=== PATIENT | male | born 2000 | race African-American/Black ===

== ENCOUNTER 2018-04-20 08:28 | Emergency (ER) | payer OTHER, SELFPAY ==
[2018-04-20 08:29] VITALS: BP 140/84; PULSE 102; RESP 16; TEMP 36.8; O2SAT 98; BMI 25.8
--- NOTE | 2018-04-20 08:34 | RAD_ITS ---
STUDY: X-RAY - RIGHT HAND, ATTENTION THUMB FINGER REASON FOR EXAM: Male, 18 years old. Right thumb injury 10 days ago. Swelling. TECHNIQUE: 3 view(s) of the finger were obtained. COMPARISON: None. FINDINGS: Normal metacarpal head. Normal metacarpophalangeal joint. Normal proximal phalanx. Normal middle phalanx. The tip of the distal phalanx of the thumb is somewhat ill-defined. There is adjacent soft tissue swelling. Normal proximal interphalangeal joint. Normal distal interphalangeal joint. There is otherwise no demonstrated fracture. RAD/Finger(s) Min 2 Views IMPRESSION: The tip of the distal phalanx of the thumb is somewhat ill-defined. Early resorption or infectious process is difficult to entirely exclude. Follow-up exam is recommended if clinically indicated. Electronically Signed: Nikko Castro MD at 9:06 EDT Tel , Service support ,
--- NOTE | 2018-04-20 08:43 | ED.VISSUMM ---
- ER Visit Summary Date of Service: 04/20/18 Chief Complaint: Pain, swelling, redness and blood under nail secondary to blunt trauma that occurred at work History of Present Illness: The patient is a 18 M who is right hand dominant presents with traumatic injury right thumb that occurred approximate 1 week ago at work. He reports increased pain and swelling. He does have a subungual hematoma. He states blood did spontaneously evacuate. He presents now because of throbbing pain right thumb with swelling and redness. He denies fever, chills or night sweats. He denies history rheumatic fever, murmur, SBE, IV drug use or being immune suppressed. He reports pain with movement of the thumb. He has no antibiotic allergies. Please read written note for complete detail Physical Examination: Vital signs remarkable for an elevated blood pressure 140/84 heart rate 102. Heart is regular without murmur, gallop or rub. S1 and S2 are normal. Lungs are clear to auscultation with good movement of air bilaterally. The right thumb is swollen erythematous. The erythema is distal DIP joint. There is a lymphangitic streak to the MCP joint. There is fluctuance on the dorsal surface and significant fluctuance on the volar surface, which raises concern for a felon. There is no epitrochlear or axillary lymphadenopathy. Test Results: Three-view x-ray of the right thumb was obtained interpreted by me. There is no fracture, foreign body or subcutaneous air. There is soft tissue swelling noted. Emergency Department Course and Treatment: Three-view x-ray of thumb was obtained to evaluate for foreign body, fracture and subcu air. Patient was informed that the thumb (he fell and) needs to be drained. He was informed what that entailed. A metacarpal nerve block was placed prior to patient going to x-ray. Incision was made at area of maximal fluctuance. Significant purulent material drained. Blunt dissection was undertaken. During blunt dissection. Material flowed from under the nail. In light of this the distal radial portion was removed. There is a 2 mm defect noted. The incision was irrigated and a wick was placed. Treatment Plan: Antibiotics and follow-up with corporate care on Sunday for wound check. Since this is a felon he should follow-up with orthopedics, Dr. Huizar. Disposition: Discharged home in stable and improved condition with prescription for clindamycin and outpatient orthopedic follow-up in 2 days. Impression: 1. Felon right thumb with lymphangitis initial encounter 2. I&D felon right thumb 3. Partial nail removal right thumb This note was generated with [employer] dictation software. It may contain incorrect words, spelling, and punctuation that were not noted in review of the chart prior to signing ED Disposition - Plan for ED Patient: Disposition: Home or Assisted Living Chief Complaint: Upper Extremity Injury Instructions: ED Abscess IandD Prescriptions: Clindamycin HCl 300 mg PO 4X/DAY #28 cap Referrals: Care Physician,No Primary [Primary Care Provider] - Avani Huizar DO [STAFF PHYSICIAN] - 2 Days for wound check Additional Instructions: If you develop a temperature greater than 100 or have shaking chills or red streak advances to your wrist return to the emergency department.
--- NOTE | 2018-04-20 08:47 | ED.DCSUM_ITS ---
- ER Visit Summary Date of Service: 04/20/18 Chief Complaint: Pain, swelling, redness and blood under nail secondary to blunt trauma that occurred at work History of Present Illness: The patient is a 18 M who is right hand dominant presents with traumatic injury right thumb that occurred approximate 1 week ago at work. He reports increased pain and swelling. He does have a subungual hematoma. He states blood did spontaneously evacuate. He presents now because of throbbing pain right thumb with swelling and redness. He denies fever, chills or night sweats. He denies history rheumatic fever, murmur, SBE, IV drug use or being immune suppressed. He reports pain with movement of the thumb. He has no antibiotic allergies. Please read written note for complete detail Physical Examination: Vital signs remarkable for an elevated blood pressure 140/ 84 heart rate 102. Heart is regular without murmur, gallop or rub. S1 and S2 are normal. Lungs are clear to auscultation with good movement of air bilaterally. The right thumb is swollen erythematous. The erythema is distal DIP joint. There is a lymphangitic streak to the MCP joint. There is fluctuance on the dorsal surface and significant fluctuance on the volar surface , which raises concern for a felon. There is no epitrochlear or axillary lymphadenopathy. Test Results: Three-view x-ray of the right thumb was obtained interpreted by me. There is no fracture, foreign body or subcutaneous air. There is soft tissue swelling noted. Emergency Department Course and Treatment: Three-view x-ray of thumb was obtained to evaluate for foreign body, fracture and subcu air. Patient was informed that the thumb (he fell and) needs to be drained. He was informed what that entailed. A metacarpal nerve block was placed prior to patient going to x-ray. Incision was made at area of maximal fluctuance. Significant purulent material drained. Blunt dissection was undertaken. During blunt dissection. Material flowed from under the nail. In light of this the distal radial portion was removed. There is a 2 mm defect noted. The incision was irrigated and a wick was placed. Treatment Plan: Antibiotics and follow-up with corporate care on Sunday for wound check. Since this is a felon he should follow-up with orthopedics, Dr. Huizar. Disposition: Discharged home in stable and improved condition with prescription for clindamycin and outpatient orthopedic follow-up in 2 days. Impression: 1. Felon right thumb with lymphangitis initial encounter 2. I&D felon right thumb 3. Partial nail removal right thumb This note was generated with [employer] dictation software. It may contain incorrect words, spelling, and punctuation that were not noted in review of the chart prior to signing ED Disposition - Plan for ED Patient: Disposition: Home or Assisted Living Chief Complaint: Upper Extremity Injury Instructions: ED Abscess IandD Prescriptions: Clindamycin HCl 300 mg PO 4X/DAY #28 cap Referrals: Care Physician,No Primary [Primary Care Provider] - Avani Huizar DO [STAFF PHYSICIAN] - 2 Days for wound check Additional Instructions: If you develop a temperature greater than 100 or have shaking chills or red streak advances to your wrist return to the emergency department.
[2018-04-20] MEDS: Clindamycin HCl 150 MG Capsule 300 MG PO (09:51)
[2018-04-20] MEDS: Naproxen 250 MG Tablet 500 MG PO (09:57)
[2018-04-20 10:00] VITALS: BP 140/80; PULSE 82; RESP 18; O2SAT 98
== END 2018-04-20 10:01 | disposition home or self-care (01) ==
PROVIDERS: Emergency Provider Emergency Medicine
DX: L03.021 Acute lymphangitis of right finger (principal); S60.111A Contusion of right thumb with damage to nail, initial encounter; X58.XXXA Exposure to other specified factors, initial encounter; Y93.9 Activity, unspecified; Y92.9 Unspecified place or not applicable; Z72.0 Tobacco use
CPT/HCPCS: 26011; 11750; 10060; 73140; 99283

== ENCOUNTER 2018-04-24 11:40 | Day surgery (SDC) | payer OTHER, SELFPAY ==
[2018-04-24] VITALS (7 sets, daily range): BP systolic 127–154; BP diastolic 81–109; PULSE 56–82; RESP 16–20; TEMP 36.4–36.9; O2SAT 96–100; BMI 25.8
--- NOTE | 2018-04-24 07:30 | MISC_PTH ---
PATIENT: SULEMAN TURCIOS LOC: [facility] [place] U#:[id number] AGE/SX: 18/M ROOM: RE04/24/[address]: Dr. Avani Huizar DO : 2000 BED: DIS: 04/24/2018 SPEC #: [id number] RECD: 04/25/18 09:16 STATUS: ZOHRA TO #: [id number] NANDO: 04/24/18 07:[address]: Avani Huizar DEPT: SURGICAL PATHOLOGY RECD BY: Eder Jasso ENTERED: 04/25/18 10:10 SP TYPE: [facility] [place] [facility] DR: Chio Primary Care Phys Tissues: A - Nail of finger, NOS B - Bone of hand, NOS Procedures: Decalcification bone/plaque Surgery Specimen Level III Surgery Specimen Level IV HEADER OPERATION: Nail removal, matrix debridement, pulp irrigation and debridement PRE-OP DIAGNOSIS: Contusion of right thumb with damage to nail TISSUE SUBMITTED: A ? Right first fingernail, B ? Bone right first finger MICROSCOPIC DIAGNOSIS A. Right first fingernail, excision: Fragments of unremarkable nail. B. Bone of right first finger, biopsy: Consistent with acute osteomyelitis. AM:bryan 05/01/18 MICROSCOPIC DESCRIPTION Slides are reviewed. GROSS DESCRIPTION A - Received in fixative is one container labeled with the patient's name and designated right first fingernail. The specimen consists of a piece of nail measuring 2.5 x 1.5 cm and 0.1 cm in thickness. The specimen is serially sectioned and submitted entirely in one cassette. B - Received in fixative is one container labeled with the patient's name and designated bone right first finger. The specimen consists of a piece of bone measuring 0.4 x 0.3 x 0.1 cm. The specimen is totally submitted in one cassette after decalcification. / SJ:bryan 04/25/18 TC:2 CPT: 13438, 86216, 10945
[2018-04-24] MEDS: Cefazolin 2 GM in 0.9% Normal Saline 100 ML IV (14:15)
--- NOTE | 2018-04-24 15:09 | PCM.DC.ORTHO ---
Discharge Diet: No Restrictions - leave dressing on and clean/dry/intact, will call patient tomorrow with plan for next dressing change Discharge Activity: May Not Drive May shower in (days): 1 Ice area for (Minutes): 20 - Every hour while awake. Weight Bearing Status: Weight bearing as tolerated Keep extremity elevated above heart level: Operative Extremity Call your doctor if your incision/area has: Continuous Slow Oozing, Sudden Increased Bleeding, Increased Pain/ Swelling, Increased Redness, Foul Smelling Discharge Call your doctor if you observe: Fever of 101 or Higher, Coldness, Increased Pain, Numbness or Tingling, Change in Color, Calf discomfort Allergies/Adverse Reactions: Allergies No Known Allergies Allergy (Verified 04/24/18 12:03) Medications to take at Discharge Clindamycin HCl 300 mg PO 4X/DAY #28 cap 04/20/18 Hydrocodone Bitart/Apap 5-325 [Sylvania 5MG-325MG] 1 - 2 tablet PO Q6H PRN PRN 5 Days #40 tablet 04/24/18 The following prescriptions were given: Hydrocodone Bitart/Apap 5-325 [Sylvania 5MG-325MG] 1 - 2 tablet PO Q6H PRN PRN 5 Days #40 tablet PRN Reason: Pain Primary Care Physician: Care Physician,No Primary [Primary Care Provider] - Test Results: Test results from this visit will be discussed in further detail at your follow-up appointment, if applicable. Please Follow Up With: Avani Huizar, DO - [phone]
--- NOTE | 2018-04-24 15:15 | OP.PCM_ITS ---
Report of Operation Date of Procedure: 04/24/18 Pre-Operative Diagnosis: right thumb nailbed laceration with resultant felon/ pulp infection Post-Operative Diagnosis: same Surgery/Procedure Performed:: right thumb nail removal, debridement of nailbed and repair of nailbed, incision/drainage/debridement of felon edi developer: Chris Sanchez Type of Anesthesia:: General, Local Anesthesiologist: Jarocho Nowak Specimen's removed: bone, felon cultures Estimated Blood Loss (mL): 8cc Fluids Replaced: 1000ml lr Description of Procedure: Preoperative note Patient is a 18-year-old male who sustained a work injury where he hit his thumb with a metal. He develops that resulted in pain and infection was seen in the ER where they opened him up for a felon infection irrigated and packed immersing it was then seen in the office. In the office is noted that he had a soft tissue at the nailbed which was quite indurated and some drainage still coming from his spell and the decision was made then taken urgently to the operating room the next day for repeat irrigation debridement and further evaluation of his nailbed and nail. Risks benefits alternatives surgery discussed with patient. Risks including but not limited to blood loss compliant , blood clot, infection, neurovascular failure loss of nail, failure of nail to grow back normally, loss of life and loss of limb. Patient is aware would like proceed with left thumb care is indicated. Operative note Patient seen and examined preoperative holding area. Right thumb was marked. Patient is brought to the operating room placed supine on the operating table. Signing, anesthesia, antibiotics were administered. The right thumb was prepped and draped in usual sterile fashion with a tourniquet around his upper arm. Please note was supposed to have antibiotics held however he was given biotics however he has been on clindamycin for quite some time for a few days now so I doubt that will greatly change his culture outcomes. Timeout was performed. We then extend the incision that they do head performed in the ER both about a quarter syndrome both distally and proximally and then used curved hemostats to open up the pulp and open up in the septae to ensure that there is no further pockets of pus in his thumb which there was not. He developed it was 0 saying Murky fluid but nothing on Debra this was sent for culture for evaluation. We then moved to his nail. We removed the nail its entirety his nail bed was quite indurated and the mid nailbed as the tissue underneath the nail that is actually coming through the nailbed we debrided this back and we repaired the nailbed to the side of the skin to the nailfold. We applied sterile dressings and we did take some clinical pictures for further evaluation and to show the patient at a later date. Please note that the laceration through the nail bed communicated where the previous film incision was then we did also remove bone just for further evaluation from pathology. We irrigated the incision with copious amounts serially with closed with sterile dressings we will contact wound care in the morning and see when he can be seen and are seen on of either wound care with OT wound care over the wound care center. Patient transferred to recovery room in stable condition there were no comp occasions patient tolerated procedure well. Next Postoperative note Continue clindamycin Follow-up in OT or wound care center will check into this tomorrow next Keep dressing on until further evaluation Hospital has prescriptions Call with concerns as This note was generated with [employer] dictation software. It may contain incorrect words, spelling, and punctuation that were not noted in checking the note before signing.
[2018-04-24] MEDS: Bupivacaine 0.5% PF 10 ML VIAL (15:19)
== END 2018-04-24 19:20 | disposition home or self-care (01) ==
LOC: SDC 11:43 → AC 11:47
PROVIDERS: Visit Provider Orthopaedic Surgery
PROC: (CPT 11750; principal; 2018-04-24 07:20)
DX: S61.111A Laceration without foreign body of right thumb with damage to nail, initial encounter (principal); W22.8XXA Striking against or struck by other objects, initial encounter; Y93.89 Activity, other specified; Y92.89 Other specified places as the place of occurrence of the external cause; Y99.0 Civilian activity done for income or pay; L03.011 Cellulitis of right finger; F17.200 Nicotine dependence, unspecified, uncomplicated
CPT/HCPCS: 11750; 26011; 87070; 87075; 87077; 87186; 87205; 88304; 88305; 88311; J7120; J2405

== ENCOUNTER → 2018-06-24 12:52 | Outpatient (CLI) | payer OTHER, SELFPAY ==
[2018-06-24 13:37] LABS: Absolute Lymphocyte Count 2.18 X10^3/ul (0.83-4.51); Basophil# 0.01 X10^3/uL; Basophil% 0.2 % (0-1); Eosinophils% 1.8 % (0-5); Hematocrit 43.1 % (40-54); Lymphocyte # 2.18 X10^3/ul (4.0); Lymphocyte % 38.9 % (19-41); Mean Corp Hgb Conc 32.5 g/gl (32-36); Mean Corpuscular Hgb 29.3 pg (27.0-32.0); Mean Corpuscular Volume 90.2 fL (80-94); Mean Platelet Vol. 10.8 fl (6.2-12.0); Monocyte# 0.28 X10^3/uL; Neutrophil # 3.02 X10^3/uL (2.7-7.7); Neutrophil % 53.9 % (47-70); Platelet Count 246 K/mm3 (150-450); RBC Distribution Width CV 13.4 % (11.6-14.6); Red Blood Count 4.78 M/mm3 (4.6-6.2); White Blood Count 5.6 K/mm3 (4.4-11.0)
[2018-06-24 13:38] LABS: POSITIVE COUNT NO; POSITIVE DIFFERENTIAL NO; POSITIVE MORPHOLOGY NO
[2018-06-24 13:43] LABS: Erythrocyte Sedimentation Rate 1 mm/hr (0-15)
[2018-06-24 13:58] LABS: Anion Gap 6 (5-15); BUN 5 mg/dL (7-18); BUN/Creat Ratio 4.5 RATIO (10-20); Calcium,Total 8.9 mg/dL (8.5-10.1); Chloride 106 mmol/L (98-107); Creatinine, Serum 1.11 mg/dL (0.70-1.30); EST Glomerular Filtration Rate 89 mL/min (>60); Est Glom Filt Rate - Afr Amer 108 mL/min (>60); Glucose 98 mg/dL (74-106); Potassium 3.6 mmol/L (3.5-5.1); Sodium Level 142 mmol/L (136-145)
== END ==
PROVIDERS: Referring Provider Internal Medicine Infectious Disease; Visit Provider Internal Medicine Infectious Disease
DX: B20 Human immunodeficiency virus [HIV] disease (principal); E78.49 Other hyperlipidemia
CPT/HCPCS: 36415; 80048; 85025; 85652

== ENCOUNTER 2018-07-04 14:30 | Outpatient (RCR) | payer OTHER, SELFPAY ==
--- NOTE | 2018-04-26 14:59 | HP.OTEVAL_ITS ---
Patient's Visit Information MCKENZIE TURCIOS is a 18 year old M, referred to Occupational Therapy by Avani Huizar DO, with a diagnosis of s/p nail removal R thumb. Date of Evaluation: 04/26/18 Occupational Therapist: Lara Riley - Subjective Subjective: Arrived and noted injury at work occurred a few weeks ago while at work at [employer]. Works in customer service. Had debridement about two days ago completed by Dr. Huizar. Concerned of going back to work to pay bills . Lives with cousin who can help at times with meal prep tasks while recovering. Noted took pain meds prior to session. - Pain Right Hand 7 Pain Intensity Range: 3, 8 - Objective Objective/Observation: Open lateral scar with redness; nail bed pinky and healing. No signs of infection at this time. ROM of R IP limited. Strength limited. - ROM Wrist: WFL MP: R 31-44, L 0-67 IP: R 0-3, L -11-77 MP: WFL PIP: WFL DIP: WFL - Strength Electric Motor Mechanic: R 20 , L 100 Lateral Pinch: R unable at this time due to pain, L 24 Tripod Pinch: R unable at this time due to pain, L 20 Tip-to-Tip Pinch: R unable at this time due to pain, L 4 - DASH-Disabilities of Arm, Shoulder& Hand DASH Sum: 101 - Goals Goal:: Antawn to increased R supervising fire marshal to with 10 lbs of L hand to promote increased ROM and strength needed to return to work related tasks by d/c. Goal:: Antawn to be increase R thumb ROM to that of with 5 degress of L thumb to promote ROM and manipulation needed for ADL/IADls by d/c. Goal:: ANtawn to be (I) to complete fx pinch patterns with pinch strength simlar to that of L hand to promote increased ability to manipulate items needed for ADL/IADls by d/c. Goal:: Antawn to complete edema management techniques prn to promote decreased sweling and increased ROM needed to reutrn to PLOF by d/c. Goal:: Antawn to be (I) to return to all self care and work- related tasks with R hand 5/5 trials 100% of the time by d/c. Goal:: Antawn to be mod I to consistently complete all reccommended HEp and techniques to manage symptoms to promote healing 4/5 trials 80% of the time to promote returning to PLOF by d/c. - Rehabilitation General Assessment: Mckenzie arrived for OT evaluation on this date. Protective gutter splint fabricated to protect R thumb tip. Completed debride and future OT to address healing, edema management techniques, ROM, and strength to promote returning to PLOF for all ADL/IADls. Handout provided on AROM for thumb as well as Hep for cleaning methods upon initial evaluation. Rehabilitation Potential: Good - Anticipated Interventions Anticipated Interventions: A/AAROM/PROM, Strengthening, Edema Control, Scar Care , Massage, Wound Care, Orthoses, Joint Protection/Energy Conservation, Fine Motor Coord/Dajuan, ADL Training, Caregiver Training, Home Program - Visit Plan Frequency: 2x /Week Duration: 4-6 Weeks General Plan: OT to completed debridement and watch regularly for infections. C9 has not yet been approved and Pt. was seen today after signing non- coverage letter. He agreed to tx today and appointment schedule Sunday as further follow up is necessary to prevent infection. Once receiving C9 further follow up will be schedule dot promote ROM, strength, edema management techniques, and return to PLOF for al FMC and in hand manipulation tasks with R hand for ADL/IADls. TEXT: Thank you for the opportunity to evaluate your patient. For Medicare and Medicare HMO plans, please review the plan of care and approve it. It will need to be FAXED BACK to us at [phone] for Medicare purposes. Please let me know if there are questions or concerns regarding this plan of care. Physician Signature: Date:
--- NOTE | 2018-05-29 16:04 | OTREVAL_ITS ---
Avani Huizar, DO, It has been my pleasure to treat MCKENZIE TURCIOS over the last 7 visits for s/p nail removal R thumb. Please see the progress note below for an update on the occupational therapy plan of care! Subjective: Arrived and noted that thumb feels hard over lateral scar. Notes hurts when hits nailbed. He is on antibiotics (bactrum per Pt. report) and will get further blood work tomorrow to determine if there is infection. He is past date limit. Noted he talked with ladjade at front desk auxiliary to get extension. Nothing in computer. He was educated at start of session of this and that there is a potential this session as well as two previous session 04/26/18 and 05/03/18 would not be covered as not in date limits provided by . He wanted to continue and has already previously signed a no coverage letter and letter of release. Further educated that date limit does not include first two visits. Talked with [place] director of casework who noted they will look into adjusting date span for client to include first two visits as well. Mckenzie verbalized understanding of all topics discussed. Objective/Function: Reassessment completed on this date 05/29/18. Nail bed wound is closed and healing nicely. Pain with palpation over lateral IP. Pain and increased scar tissue formation with palpation of lateral scar near L side of thumb pad. No indication if bone infection is cleared or not. ROM is as follows : THUMB: Radial Adduction: R 0-47,L 0-45. Opposition: R 0-14, L 0-20. thumb MP: flex R 0-58, L 0-70. IP flexion: R 0-55, L 0-70. IP ext R 0--23. Strength assessment completed, and measurements are as follows: beverage distiller R 78, L 100. lateral R 18, L 24. tripod R 15, L 19. pincer R 7, L 13 lbs. Pinch remains weak of R affected hand and thumb. Compensations for gross beverage distiller but decreased pinch of R thumb noted with FMC related tasks. Plan Frequency: 2x /Week Duration: 2-3 Plan: Date extension has already been filed on clinic behalf. Would recommend at least 2x2-3 more weeks for total of 4-6 more appointments to form static progressive splint to help stretch IP as needed and to continue to work on FMC of R thumb. He verbalized understanding that this and first two visits may not be covered due to being out of date range. Mckenzie verbalized he would like to continue session when educated on situation and potential he would have to personally cover appointment. He has no showed for three appointments and canceled 4 appointments. Cancelations often due to transportation hardships and since being set up has been using [facility] van service. He may still have infection in bone and will be getting further blood work per Pt. report. He reports taking medications but compliant has been variable t/o therapy. He participates with tasks while in therapy. Further strengthening and ROM training would be beneficial, as long as there is no additional underlying infection, to promote increased FMC and manipulation of thumb. Job description would be beneficial to know how much Antjoaquinn is required to lift while at work. He is progressing and has follow up with Dr. Haley who will further determine is ready to return to work. Goals - Goals Goal:: Antawn to increased R beverage distiller to with 10 lbs of L hand to promote increased ROM and strength needed to return to work related tasks by d/c. Goal:: Antawn to be increase R thumb ROM to that of with 5 degress of L thumb to promote ROM and manipulation needed for ADL/IADls by d/c. Goal:: ANtawn to be (I) to complete fx pinch patterns with pinch strength simlar to that of L hand to promote increased ability to manipulate items needed for ADL/IADls by d/c. Goal:: Antawn to complete edema management techniques prn to promote decreased sweling and increased ROM needed to reutrn to PLOF by d/c. Goal:: Antawn to be (I) to return to all self care and work- related tasks with R hand 5/5 trials 100% of the time by d/c. Goal:: Antawn to be mod I to consistently complete all reccommended HEp and techniques to manage symptoms to promote healing 4/5 trials 80% of the time to promote returning to PLOF by d/c. Anticipated Interventions Anticipated Interventions: A/AAROM/PROM, Strengthening, Edema Control, Scar Care , Massage, Wound Care, Orthoses, Joint Protection/Energy Conservation, Fine Motor Coord/Dajuan, ADL Training, Caregiver Training, Home Program Please do not hesitate to contact me at [phone] by phone or Fax: if you have questions or concerns regarding this new plan of care! Sincerely, Lara Riley
--- NOTE | 2018-07-04 15:04 | HP.OTDCSUM_ITS ---
HP - OT D/C Summary It has been my pleasure to treat SULEMAN TURCIOS under orders from Avani Huizar DO, for the diagnosis of s/p nail removal R thumb for a total of 16 visit(s). Please see the following information for a summary of their discharge status. - Overall Improvement % Improvement: 90 - Objective Objective/Function: Completed reassessment on this date of 07/04/18. ROM measurements are as follows: Thumb: opposition: R 0-31, L 0-30 degrees. radial abduction R 0-45, L 0-46 degrees. Thumb MP R 12-59, L -28-0-60 degrees. Thumb IP R -14- 0-60, L -12-0-63 degrees. Strength measurements: lands resource manager R 87, L 96 lbs. lateral lands resource manager R 24, L 25 lbs. tripod R 18, L 17 lbs. pincer R 13, L 18 lbs. He has progressed and meant most goals at this time and will be d/c'd. - Goals Patient Goals: Regain Mobility, Regain Strength, Decrease Pain, Decrease Swelling/Stiffness, Improve Fine Motor Skills, Use Hand/Wrist/Arm Normally Again, Increase ROM, Be More Independent in ADLS, Decrease Sensitivity, Resume Former Household Responsibilities (Cooking,Cleaning,Yard, etc.) Goal:: Antawn to increased R lands resource manager to with 10 lbs of L hand to promote increased ROM and strength needed to return to work related tasks by d/c. Goal:: Antawn to be increase R thumb ROM to that of with 5 degress of L thumb to promote ROM and manipulation needed for ADL/IADls by d/c. Goal:: ANtawn to be (I) to complete fx pinch patterns with pinch strength simlar to that of L hand to promote increased ability to manipulate items needed for ADL/IADls by d/c. Goal:: Antawn to complete edema management techniques prn to promote decreased sweling and increased ROM needed to reutrn to PLOF by d/c. Goal:: Antawn to be (I) to return to all self care and work- related tasks with R hand 5/5 trials 100% of the time by d/c. Goal:: Antawn to be mod I to consistently complete all reccommended HEp and techniques to manage symptoms to promote healing 4/5 trials 80% of the time to promote returning to PLOF by d/c. - Plan Plan: Suleman will be d/c'd today. He has progressed well over the course of therapy. He is to call with questions/cocnerns. He is looking to potentially go into the and awaiting release from doctor. - D/C Information If there are questions or concerns regarding this patient's occupational therapy, please fell free to call me at [phone]. Thank you for the referral of this patient. Sincerely, Lara Riley
== END 2018-07-04 19:00 | disposition home or self-care (01) ==
LOC: OT 14:30
PROVIDERS: Visit Provider Orthopaedic Surgery
DX: Z98.890 Other specified postprocedural states (principal)
CPT/HCPCS: 97110; 97140; 97166; 97168; 97530; 97760; 97763